=== PATIENT | male | born 1980 | race Caucasian/White ===

== ENCOUNTER 2018-01-16 11:38 | Emergency (ER) | payer SELFPAY ==
[2018-01-16 12:33] LABS: PLATELET COUNT 186 10^3/uL (150-400)
[2018-01-16] MEDS ORDERED: IPRATROPIUM/ALBUTEROL 3 ML DEYVIAL IH ONE (13:39)
--- NOTE | 2018-01-16 13:43 | EDPHY ---
H & P Time Seen by Provider: 01/16/18 12:54 HPI/ROS: HPI Shortness of breath. 37-year-old male by private vehicle with his girlfriend. This patient reports that he woke up this morning feeling short of breath. He denies any other associated signs discharge or symptoms. No chest pain. No cough. He has not had a fever. He gives a history of asthma as a child but states that he has not had any issue with asthma in years. He was initially seen at an urgent care. He was told to come to the emergency department for further evaluation. He was also told that there was an abnormality on his EKG but was not told what that was. He describes his sensation is just not being able to take a deep breath. ROS: Constitutional: No fever, no chills. No weakness. Eyes: No discharge. No changes in vision. ENT: No sore throat. No nasal congestion or rhinorrhea. Respiratory: No cough. As above. Cardiac: No chest pain, no palpitations. Gastrointestinal: No abdominal pain, no vomiting, no diarrhea. Genitourinary: No hematuria. No dysuria or increased frequency with urination. Musculoskeletal: No back pain. No neck pain. No myalgias or arthralgias. Skin: No rashes. Neurological: No headache. No focal weakness or altered sensation. Past medical history: Spinal cord stimulator. As above. Social history: Nonsmoker. No alcohol. Here with his girlfriend. Physical Exam: General Appearance: Alert, no distress. This patient is responding to questions appropriately and in full sentences. This patient appears well- hydrated and well-nourished. No voice changes. No stridor. Eyes: Pupils equal and round no pallor or injection. No lid edema, erythema or injection. Respiratory: There are no retractions, lungs are clear to auscultation with good air movement bilaterally. No tachypnea. Cardiovascular: Regular rate and rhythm. No murmur appreciated. Neurological: Motor sensory function is grossly intact. Cranial nerves are normal. Gait is normal. Skin: Warm and dry, no rashes. Musculoskeletal: Neck is supple and nontender. No cervical, submandibular, submental lymphadenopathy. Extremities are symmetrical. All joints range without pain or impingement. Psychiatric: No agitation. No depression. Database: EKG: EKG time is 12:13 p.m.; EKG shows a narrow complex normal sinus rhythm with a ventricular rate of 82. Possible left ventricular hypertrophy. The MS, QRS, QT intervals are within normal limits. There are no ST-T wave changes indicative of ischemic or injury pattern. No evidence of right heart strain. Interpreted by me. Imaging: Chest x-ray PA and lateral; the cardiac mediastinal silhouette is unremarkable. No evidence of infiltrate or pneumothorax. Findings consistent with perihilar bronchitis or reactive airway disease. No other acute cardiopulmonary disease process noted. Interpreted by me. Procedures: Emergency department course: Triage vital signs reviewed and are normal. Pulse oximetry is 97% on room air. IV placed. EKG obtained and reviewed by myself. Patient is not wheezing but suggested a trial nebulizer treatment. He endorses. Blood work including troponin and D-dimer unremarkable. 2:55 p.m., patient re-evaluated, resting comfortably at this time. States that he does feel better after nebulizer treatment. Vital signs reviewed and are normal. radiation monitor shows a narrow complex sinus rhythm with ventricular rate of 78. Room air pulse oximetry 96%. Blood pressure is 118/81. He feels comfortable going home at this time and I feel he is safe for discharge. I discussed follow-up with Cardiology for an echocardiogram to evaluate for possible left ventricular hypertrophy. I also discussed follow-up through his primary care physician. I will prescribe him an inhaler. Return to emergency department precautions were thoroughly reviewed with him. All of his questions were answered. He was discharged from the emergency department in good condition. Differential Diagnosis: The differential diagnosis on this patient includes but is not limited to reactive airway disease, bronchitis. Acute coronary syndrome, CHF, pulmonary embolism, pericardial effusion, pneumothorax, pneumonia unlikely. This represents a partial list of diagnoses considered. These considerations are based on history, physical exam, past history, reassessment and diagnostic testing. 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 - Data Points Laboratory Results: Laboratory Results 01/16/18 12:15 01/16/18 12:15 01/16/18 01/16/18 01/16/18 12:33 12:15 12:15 WBC RBC Hgb Hct MCV MCH MCHC RDW Plt Count MPV Neut % (Auto) Lymph % (Auto) Grayson % (Auto) Eos % (Auto) Baso % (Auto) Nucleat RBC Rel Count Absolute Neuts (auto) Absolute Lymphs (auto) Absolute Monos (auto) Absolute Eos (auto) Absolute Basos (auto) Absolute Nucleated RBC Immature Gran % Immature Gran # D-Dimer < 0.27 ug/mLFEU ug/mLFEU (0.00-0.50) Sodium 140 mEq/L mEq/L (135-145) Potassium 4.2 mEq/L mEq/L (3.3-5.0) Chloride 105 mEq/L mEq/L (97-110) Carbon Dioxide 25 mEq/l mEq/l (22-31) Anion Gap 10 mEq/L mEq/L (6-14) BUN 11 mg/dL mg/dL (7-23) Creatinine 0.7 mg/dL mg/dL (0.7-1.3) Estimated GFR > 60 Glucose 96 mg/dL mg/dL (70-100) Calcium 9.9 mg/dL mg/dL (8.5-10.4) POC Troponin I 0.00 ng/mL ng/mL (0.00-0.08) 01/16/18 12:15 WBC 10.45 10^3/uL H 10^3/uL (3.80-9.50) RBC 4.95 10^6/uL 10^6/uL (4.40-6.38) Hgb 15.2 g/dL g/dL (13.7-17.5) Hct 45.0 % % (40.0-51.0) MCV 90.9 fL fL (81.5-99.8) MCH 30.7 pg pg (27.9-34.1) MCHC 33.8 g/dL g/dL (32.4-36.7) RDW 12.4 % % (11.5-15.2) Plt Count 186 10^3/uL 10^3/uL (150-400) MPV 10.7 fL fL (8.7-11.7) Neut % (Auto) 85.7 % H % (39.3-74.2) Lymph % (Auto) 10.5 % L % (15.0-45.0) Grayson % (Auto) 3.4 % L % (4.5-13.0) Eos % (Auto) 0.0 % L % (0.6-7.6) Baso % (Auto) 0.1 % L % (0.3-1.7) Nucleat RBC Rel Count 0.0 % % (0.0-0.2) Absolute Neuts (auto) 8.95 10^3/uL H 10^3/uL (1.70-6.50) Absolute Lymphs (auto) 1.10 10^3/uL 10^3/uL (1.00-3.00) Absolute Monos (auto) 0.36 10^3/uL 10^3/uL (0.30-0.80) Absolute Eos (auto) 0.00 10^3/uL L 10^3/uL (0.03-0.40) Absolute Basos (auto) 0.01 10^3/uL L 10^3/uL (0.02-0.10) Absolute Nucleated RBC 0.00 10^3/uL 10^3/uL (0-0.01) Immature Gran % 0.3 % % (0.0-1.1) Immature Gran # 0.03 10^3/uL 10^3/uL (0.00-0.10) D-Dimer Sodium Potassium Chloride Carbon Dioxide Anion Gap BUN Creatinine Estimated GFR Glucose Calcium POC Troponin I Medications Given: Discontinued Medications Albuterol/Ipratropium (Duoneb) 3 ml IH EDNOW ONE Stop: 01/16/18 13:40 Last Admin: 01/16/18 13:50 Dose: 3 ml Point of Care Test Results: Chemistry 01/16/18 12:33 POC Troponin I 0.00 ng/mL ng/mL (0.00-0.08) Departure - Departure Disposition: Home, Routine, Self-Care Clinical Impression: Dyspnea, Bronchitis Condition: Good Instructions: Acute Bronchitis (ED) Additional Instructions: Read and follow provided instructions. Follow-up with your primary care physician in 2-3 days for re-evaluation as discussed. You should also follow up with Cardiology for an echocardiogram of your heart as discussed. Call their offices for appointment later this afternoon. Explained this is for an emergency department follow-up. Albuterol inhaler: 1-2 puffs every 2-4 hours as needed for cough and shortness of breath. Return to the emergency department for worsening symptoms, worsening shortness of breath, fever, worsening cough or other serious concerns. Referrals: [facility],. [Clinic] - As per Instructions Lesly Wheatley MD [Medical Doctor] - As per Instructions [facility] [Provider Group] - As per Instructions Prescriptions: Albuterol [Proventil Inhaler HFA (*)] 2 puffs IH Q2-4PRN PRN #1 mdi PRN Reason: Sob/Dyspnea
--- NOTE | 2018-01-16 15:31 | CPEKG ---
Test Reason : OPEN Blood Pressure : / mmHG Vent. Rate : 082 BPM Atrial Rate : 081 BPM P-R Int : 165 ms QRS Dur : 078 ms QT Int : 375 ms P-R-T Axes : 089 083 043 degrees QTc Int : 438 ms Sinus rhythm Consider left ventricular hypertrophy Confirmed by Chapito Moseley ([id number]) on 01/16/2018 3:31:02 PM Referred By: Confirmed By:Chapito Moseley
[2018-01-16 15:37] VITALS: BP 118/81
== END 2018-01-16 15:38 | disposition home or self-care (01) ==
DX: R06.00 Dyspnea, unspecified (principal); J40 Bronchitis, not specified as acute or chronic; F17.200 Nicotine dependence, unspecified, uncomplicated
CPT/HCPCS: 84484-PO